=== PATIENT | female | born 2000 | race Caucasian/White ===

== ENCOUNTER 2022-02-24 20:10 | Inpatient (IN) | payer OTHER ==
[~2022-02-24] VITALS: Ht 160 cm; Wt 88.0 kg
[2022-02-24 21:14] LABS: BASOPHILS ABSOLUTE AUTO 0.03 K/mm3 (0.00-0.23); BASOPHILS PERCENT AUTO 0 % (0-2); EOSINOPHILS ABSOLUTE AUTO 0.02 K/mm3 (0.00-0.68); EOSINOPHILS PERCENT AUTO 0 % (0-6); Hematocrit 32.8 % (33.0-51.0); Hemoglobin 10.8 g/dL (11.5-16.0); IMMATURE GRAN ABSOLUTE AUTO 0.05 K/mm3 (0.00-0.10); IMMATURE GRAN PERCENT AUTO 1 % (0-1); LYMPHOCYTES ABSOLUTE AUTO 1.39 K/mm3 (0.84-5.20); LYMPHOCYTES PERCENT AUTO 18 % (21-46); MONOCYTES ABSOLUTE AUTO 0.55 K/mm3 (0.16-1.47); MONOCYTES PERCENT AUTO 7 % (4-13); Mean Corpuscular HGB 30.3 pg (26.0-34.0); Mean Corpuscular HGB Conc 32.9 g/dL (31.5-36.5); Mean Corpuscular Volume 92 fL (80-100); Mean Platelet Volume 10.5 fL (9.1-12.4); NEUTROPHILS ABSOLUTE AUTO 5.55 K/mm3 (1.96-9.15); NEUTROPHILS PERCENT AUTO 73 % (41-73); Platelet Count 186 K/mm3 (150-400); RDW Coefficient Variation 15.7 % (11.7-14.2); RDW Standard Deviation 52.3 fL (35.1-46.3); Red Blood Cell Count 3.57 M/mm3 (3.80-5.20); White Blood Cell Count 7.59 K/mm3 (4.00-11.30)
[2022-02-26 06:10] LABS: Hematocrit 28.1 % (33.0-51.0); Mean Corpuscular HGB 29.7 pg (26.0-34.0); Mean Corpuscular Volume 93 fL (80-100); Mean Platelet Volume 10.1 fL (9.1-12.4); Platelet Count 118 K/mm3 (150-400); RDW Coefficient Variation 15.8 % (11.7-14.2); RDW Standard Deviation 53.4 fL (35.1-46.3); Red Blood Cell Count 3.03 M/mm3 (3.80-5.20); White Blood Cell Count 6.03 K/mm3 (4.00-11.30)
[2022-02-26 07:09] LABS: HBSAG SCREEN Negative (Negative)
[2022-02-26 08:09] LABS: HIV AB/P24 AG SCREEN Non Reactive (Non Reactive)
--- NOTE | 2022-02-26 08:10 | NUR ---
sitting up eating breakfast, worried the baby will wake up, reoprts baby hasnt slept much, was reported that table games shift manager took baby for awhile and mom reports she slept for table games shift manager and that she is jeolous she slept for them. pt sister is in room and reports last feed was 30 minutes ago.
--- NOTE | 2022-02-26 09:20 | NUR ---
plan to dc mom to boarder status today if peds doesnt discharge baby home
[2022-02-26] MEDS ORDERED: IBUP800 PO (10:32)
--- NOTE | 2022-02-26 13:00 | NUR ---
dc home with SO and sister. encouraged to make an appointment with jose roberto jasso, she see's her hippy homeopathic neighbor for care. sister reports she had pp depression last time, went over depression info, encouraged to call doctor if has any depression to call [facility]
--- NOTE | 2022-02-27 15:38 | NUR ---
PPFU. PT DID NOT COME IN FOR SCHEDULED PPFU. RN ATTEMPTED TO CALL PT'S PHONE NUMBER, NO ANSWER, PHONE STATES "CALL CANNOT BE COMPLETED BECAUSE THERE ARE RESTRICTIONS ON THIS LINE". FOB'S PHONE NUMBER ATTEMPTED WITH NO ANSWER AND VOICEMAIL IS NOT SET UP. CPS NOTIFIED OF NO SHOW TO APPOINTMENT, RN SPOKE WITH CPS REP. GUERRERO, REPORT ID NUMBER IS [id number]. CESAR INSTRUCTED RN TO CALL HOTLINE BACK IF PARENTS BRING NB TO CLINIC.
--- NOTE | 2022-02-28 12:21 | NUR ---
PPFU. PT CALLED TO RESCHEDULE PPFU THAT WAS NO SHOWED YESTERDAY. PT STATES SHE OVER SLEPT, NO SHOW APPOINTMENT SCHEDULED FOR 1500. PT RESCHEDULED APPOINTMENT TO TODAY AT 1100 AND NO SHOWED TO TODAYS APPOINTMENT. RN CALLED BOTH PHONE NUMBERS LISTED WITH SAME RESULT YESTERDAY. RN NOTIFIED CPS, REPORT ID NUMBER [id number]. DR. HADLEY'S OFFICE NOTIFED OF NO SHOWS AND REPORT TO CPS.
== END 2022-02-26 12:55 | disposition home or self-care (01) | DRG 807 ==
LOC: OBS 20:10 → BC 20:10 → OBS 20:30 → BC 20:30
PROVIDERS: ADMIT Advanced Practice Midwife
PROC: 10E0XZZ Delivery of Products of Conception, External Approach (ICD-10-PCS; principal; 2022-02-25)
PROC: 3E0R3BZ Introduction of Anesthetic Agent into Spinal Canal, Percutaneous Approach (ICD-10-PCS; 2022-02-25)
PROC: 00HU33Z Insertion of Infusion Device into Spinal Canal, Percutaneous Approach (ICD-10-PCS; 2022-02-25)
DX: O42.02 Full-term premature rupture of membranes, onset of labor within 24 hours of rupture (principal); Z37.0 Single live birth; Z3A.00 Weeks of gestation of pregnancy not specified
CPT/HCPCS: 36415; 51702; 85025; 85027; 86317; 86592; 86762; 86850; 86900; 86901; 87340; 87389; A9270; J1885; J2001; J2210; J2405; J2590; J3010; J7120